=== PATIENT | female | born 1980 | race Two or more races ===

== ENCOUNTER 2018-06-21 16:39 | Emergency (ER) | payer OTHER ==
--- NOTE | 2018-06-21 17:15 | PDOC ---
History of Present Illness - General Chief Complaint: Seizure Stated Complaint: SEIZURE Time Seen by Provider: 06/21/18 17:01 - History of Present Illness Initial Comments: The patient is a 38F w/ a history of seizures who presents for evaluation s/p second seizure and fall today. She reports that she had a seizure and fall this morning, was evaluated at [facility], including CT scan, was not given any medication, and was discharged home. 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 She was found by roommates who called EMS. Upon presentation she states she feels oriented, has a global GONZALES since he first fall, and is feeling generalized muscle tightness which is normal for her s/p seizure. She endorses taking her medications as prescribed. She does not recall the name of her neurologist at this time. Denies recent illness, fevers/chills, chest pain, SOB, abdominal pain, N/V/C/D, dysuria, hematuria, or changes in sensation Divalproex 500mg Phenobarbital 97.2mg Keppra 750mg Fycompa 12mg 06/21/18 17:09 Past History - Past Medical History Allergies/Adverse Reactions: Allergies Allergy/AdvReac Type Severity Reaction Status Date / Time lamotrigine Allergy Verified 06/21/18 16:59 meloxicam Allergy Verified 06/21/18 16:59 Home Medications: Ambulatory Orders Diazepam [Valium] 5 mg PO DAILY 06/21/18 Divalproex [Depakote -] 500 mg PO DAILY 06/21/18 Folic Acid 1 mg PO DAILY 06/21/18 Levothyroxine [Synthroid -] 150 mcg PO DAILY 06/21/18 Perampanel [Fycompa] 12 mg PO DAILY 06/21/18 Phenobarbital 97.2 mg PO DAILY 06/21/18 levETIRAcetam [Keppra -] 750 mg PO DAILY 06/21/18 COPD: No CHF: No Seizures: Yes - Suicide/Smoking/Psychosocial Hx Smoking History: Never smoked Have you smoked in the past 12 months: No Information on smoking cessation initiated: No Hx Alcohol Use: No Drug/Substance Use Hx: No Substance Use Type: None Review of Systems - Review of Systems Able to Perform ROS?: Yes Comments:: GENERAL/CONSTITUTIONAL: No fever or chills. No weakness HEAD, EYES, EARS, NOSE AND THROAT: No change in vision. No ear pain or discharge. No sore throat CARDIOVASCULAR: No chest pain or shortness of breath RESPIRATORY: Denies cough, hemoptysis GASTROINTESTINAL: No nausea, vomiting, diarrhea or constipation GENITOURINARY: No dysuria, frequency, or change in urination MUSCULOSKELETAL: No joint or muscle swelling or pain. No neck or back pain SKIN: No rash NEUROLOGIC: + headache, LOC; Denies vertigo or change in strength/sensation ENDOCRINE: No increased thirst. No abnormal weight change HEMATOLOGIC/LYMPHATIC: No anemia, easy bleeding, or history of blood clots ALLERGIC/IMMUNOLOGIC: No hives or skin allergy 06/21/18 17:13 Is the patient limited Citizen Of [place] proficient: No *Physical Exam - Vital Signs Last Vital Signs Temp Pulse Resp BP Pulse Ox 99.5 F 102 H 18 127/95 100 06/21/18 16:43 06/21/18 16:43 06/21/18 16:43 06/21/18 16:43 06/21/18 16:43 - Physical Exam Comments: GENERAL: Awake, alert, and fully oriented, in no acute distress HEAD: Hematoma supeior to L eye with overlying ecchymosis EYES: PERRLA, EOMI, sclera anicteric, conjunctiva clear ENT: Hearing grossly normal, nares patent, oropharynx clear without exudates. Moist mucosa LUNGS: No distress, speaks full sentences, clear to auscultation bilaterally HEART: Tachycardic rate with regular rhythm, normal S1 and S2, no murmurs appreciated, peripheral pulses normal and equal bilaterally ABDOMEN: Soft, nontender, normoactive bowel sounds. No guarding, no rebound EXTREMITIES : Normal inspection, Normal range of motion, no edema. No clubbing or cyanosis NEUROLOGICAL: Cranial nerves II through XII grossly intact. Normal speech, no focal sensorimotor deficits SKIN: L supraorbital ecchymosis 06/21/18 17:14 Moderate Sedation - Procedure Monitoring Vital Signs: Procedure Monitoring Vital Signs Temperature 99.5 F 06/21/18 16:43 Pulse Rate 102 H 06/21/18 16:43 Respiratory Rate 18 06/21/18 16:43 Blood Pressure 127/95 06/21/18 16:43 O2 Sat by Pulse Oximetry (%) 100 06/21/18 16:43 ED Treatment Course - LABORATORY CBC & Chemistry Diagram: 06/21/18 17:00 06/21/18 17:00 - RADIOLOGY Radiology Studies Ordered: Category Date Time Status HEAD CT WITHOUT CONTRAST [CT] Stat CT Scan 06/21/18 16:56 Ordered Medical Decision Making - Medical Decision Making The patient is a 38F w/ a history of hypothyroidism and seizures that presents or evaluation s/p second seizure and fall today ED Course CMP, CBC, cardiac enzymes, TSH, serum preg ECG Head CT w/o 06/21/18 17:15 No ARLYN Lytes wnl Trop I neg LFTs wnl No leukocytosis No anemia TSH wnl serum preg neg Pt at CT 06/21/18 18:22 CT head neg for acute pathology Discussed patient w/ Dr. Whelan. Will increase pt's Keppra to 1000mg BID and have her f/u with Epilepsy. Patient also has f/u w/ her PCP tomorrow. Will patient her home meds that are due (Phenobarb, valproate, diazepam, and keppra) Plan for D/C w/ PCP f/u Discharge instructions and return precautions given Patient is in agreement and verbalized understanding Dispo: Home 06/21/18 20:23 *DC/Admit/Observation/Transfer Diagnosis at time of Disposition: Seizure Fall from standing Qualifiers: Encounter type: initial encounter Qualified Code(s): W19.XXXA - Unspecified fall, initial encounter - Discharge Dispostion Disposition: HOME Condition at time of disposition: Stable Decision to Admit order: No - Referrals Referrals: Fernando Welch MD [Primary Care Provider] - Jeff Blas MD [Staff Physician] - - Patient Instructions Printed Discharge Instructions: DI for Seizure Disorder -- Adult Additional Instructions: You were seen in the Emergency Department today for evaluation of seizure and fall. Review the handout provided at discharge. After talking with our Neurologist, he recommends INCREASE YOUR KEPPRA DOSE TO 1000mg TWICE A DAY. Follow up with your neurologist and the referral provided to evaluate if you need to modify your regimen further. Return to the Emergency Department if you develop fevers Print Language: HEBREW - Post Discharge Activity
[2018-06-21 17:17] LABS: HEMATOCRIT 38.9 % (32.4-45.2); HEMOGLOBIN 13.7 GM/dL (10.7-15.3); MCH 33.1 pg (25.7-33.7); MCHC 35.2 g/dl (32.0-36.0); MEAN CELL VOLUME 94.1 fl (80-96); PLATELET COUNT 183 K/MM3 (134-434); RBC 4.13 M/mm3 (3.60-5.2); RDW 13.5 % (11.6-15.6)
--- NOTE | 2018-06-21 17:21 | PDOC ---
Attending Attestation - HPI HPI: This patient is a 38 year old female with PMHx of seizures who was BIBA and presents s/p seizures earlier today. Patient states that she had a seizure and fell earlier this morning and was evaluated at [facility]. She had a CT scan and was d/c home. She states that she had a second seizure while at home and fell once again. She was found by roommates who called EMS. Patient endorses diffuse headache, as well as a bitten upper lip. She states that she has been taking her medications as prescribed. Denies recent illness, fevers/chills, chest pain, SOB, abdominal pain, N/V/C/D, dysuria, hematuria, or changes in sensation 06/21/18 18:48 - Physicial Exam PE: GENERAL: Febrile to 103F. Well developed, well nourished. Awake and alert. In no acute distress. HEENT: Normocephalic, hematoma over left eyebrow. PERRLA, EOMI. No conjunctival pallor. Sclerae are non-icteric. Moist mucous membranes. NECK: Supple. Full ROM. No JVD. Carotid pulses 2+ and symmetric, without bruits. CARDIOVASCULAR: Regular rate and rhythm. No murmurs, rubs, or gallops. PULMONARY: No evidence of respiratory distress. Lungs clear to auscultation bilaterally. No wheezing, rales or rhonchi. ABDOMINAL: Soft. Non-tender. Non-distended. No rebound or guarding. No organomegaly. Normoactive bowel sounds. MUSCULOSKELETAL Normal range of motion at all joints. No bony deformities or tenderness. No CVA tenderness. EXTREMITIES: No cyanosis. No clubbing. No edema. No calf tenderness. SKIN: Warm and dry. Normal capillary refill. No rashes. No jaundice. NEUROLOGICAL: Alert, awake, appropriate. No deficits to light touch and temperature in face, upper extremities and lower extremities. No motor deficits in the in face, upper extremities and lower extremities. Normoreflexic in the upper and lower extremities. Normal speech. Toes are downgoing bilaterally. PSYCHIATRIC: Cooperative. Good eye contact. Appropriate mood and affect. 06/21/18 18:48 - Medical Decision Making Placed phonecall to Neuro garment alteration examiner (Dr. Whelan) 06/21/18 19:28 <María Jerome - Last Filed: 06/21/18 19:28> - Resident Resident Name: Kelechi Thompson - Medical Decision Making 06/21/18 20:26 this 38 yo female has a h/o epilepsy and takes multiple medications for epilepsy -she states she had a previous szs today and was seen at [facility] ED. -she sustained a forehead hematoma over left eyebrow and and trauma to her buccal mucosa of her L maxillary lip -she is axox3 ,moving all his extremities ct scan head no acute intracranial pathology,no skull fracture -lab reviewed -case discussed with Dr Whelan, plan will increase keppra to 1000mg BID quevedo she has an appt with her neurologist TOMORROW <Mary Jo Sandhu - Last Filed: 06/21/18 20:36>
[2018-06-21 17:54] LABS: ALBUMIN 3.8 g/dl (3.4-5.0); ALK PHOS 68 U/L (45-117); ANION GAP 11 MMOL/L (8-16); BILIRUBIN,TOTAL 0.3 mg/dL (0.2-1); BLOOD UREA NITROGEN 6 mg/dL (7-18); CALCIUM 8.6 mg/dL (8.5-10.1); CHLORIDE 103 mmol/L (98-107); CO2 26 mmol/L (21-32); CREATININE 0.6 mg/dL (0.55-1.3); GLUCOSE,RANDOM 100 mg/dL (74-106); POTASSIUM 3.7 mmol/L (3.5-5.1); SGOT/AST 20 U/L (15-37); SGPT/ALT 33 U/L (13-61); SODIUM 140 mmol/L (136-145); TOT PROT 8.2 g/dl (6.4-8.2)
[2018-06-21 17:57] VITALS: BP 127/95; PULSE 102; TEMP 99.5; BMI 34.2
[2018-06-21] MEDS ORDERED: PHENobarbital 20 MG/5 ML UNIT-DOSE CUP PO ONE ×2 (18:47→19:15)
[2018-06-21] MEDS ORDERED: levETIRAcetam 500 MG TABLET (FP) PO ONE ×2 (19:52→20:09)
[2018-06-21] MEDS ORDERED: DIVALPROEX SODIUM 500 MG TABLET E.C. PO ONE (19:52)
[2018-06-21] MEDS ORDERED: diazePAM 5 MG TABLET PO ONE (19:54)
[2018-06-21] MEDS ORDERED: diazePAM 5 MG TABLET ONE (20:09)
[2018-06-21] MEDS ORDERED: DIVALPROEX SODIUM 500 MG TABLET E.C. ONE (20:09)
--- NOTE | 2018-06-22 11:15 | EKG ---
Test Reason : Blood Pressure : / mmHG Vent. Rate : 096 BPM Atrial Rate : 096 BPM P-R Int : 152 ms QRS Dur : 094 ms QT Int : 358 ms P-R-T Axes : 011 074 012 degrees QTc Int : 452 ms NORMAL SINUS RHYTHM PROBABLE INCOMPLETE RBBB ABNORMAL ECG NO PREVIOUS ECGS AVAILABLE Confirmed by ALEX GAUTAM MD ([id number]) on 06/22/2018 11:15:45 AM Referred By: Confirmed By:ALEX GAUTAM MD
== END 2018-06-21 20:51 | disposition home or self-care (01) ==
LOC: JER 16:39
DX: R56.9 Unspecified convulsions (principal); W18.39XA Other fall on same level, initial encounter; Y93.89 Activity, other specified; Y92.89 Other specified places as the place of occurrence of the external cause
CPT/HCPCS: 36415; 70450-TC; 80053; 82550; 82553; 84484; 84703; 85027; 93005; 93010; 99284-25

== ENCOUNTER 2018-11-09 13:04 | Emergency (ER) | payer OTHER ==
[2018-11-09 13:17] VITALS: BMI 29.5
[2018-11-09] MEDS ORDERED: SODIUM CHLORIDE 1,000 ML IV STA (14:28)
[2018-11-09 14:37] LABS: BASO % 0.5 % (0-2.0); EOS % 0.7 % (0-4.5); HEMATOCRIT 36.6 % (32.4-45.2); HEMOGLOBIN 12.4 GM/dL (10.7-15.3); LYMPH % 40.8 % (8-40); MEAN CELL VOLUME 94.3 fl (80-96); MEAN PLT VOLUME 8.3 fl (7.5-11.1); MONO % 10.3 % (3.8-10.2); NEUT % 47.7 % (42.8-82.8); PLATELET COUNT 171 K/MM3 (134-434); RBC 3.88 M/mm3 (3.60-5.2); RDW 14.2 % (11.6-15.6); WHITE BLOOD COUNT 4.8 K/mm3 (4.0-10.0)
--- NOTE | 2018-11-09 15:10 | PDOC ---
History of Present Illness - General Chief Complaint: Seizure Stated Complaint: SEIZURES Time Seen by Provider: 11/09/18 13:53 History Source: Patient, Director Of Laboratory Operations Used Exam Limitations: Language Barrier - History of Present Illness Initial Comments: 11/09/18 15:05 Pt is a 38yo F with PMH of Epilepsy, Hypothyroidism, L eye ptosis BIBA for witnessed seizure at around noon today. Pt states that she was sitting in a chair and the next thing she knew was that EMS was taking her to the hospital. Pt states that she seized for around 2 minutes. Previous seizure was October 27, 2018. She takes Keppra, phenobarbital, depakote and diazepam. She has been taking her medications daily. She saw her neurologist 20 days ago and there have been no changes in her medications. She denies headache, changes in vision , chest pain, sob, fevers, chills, numbness/tingling, abdominal pain, n/v/d. Denies illicit drug use. PMD: Stepan Neuro: Ivy PMH: see hpi PSH: none Allergies: lamictal, meloxicam Past History - Past Medical History Allergies/Adverse Reactions: Allergies Allergy/AdvReac Type Severity Reaction Status Date / Time lamotrigine Allergy Verified 06/21/18 16:59 meloxicam Allergy Verified 06/21/18 16:59 Home Medications: Ambulatory Orders Diazepam [Valium] 5 mg PO DAILY 06/21/18 Divalproex [Depakote -] 500 mg PO DAILY 06/21/18 Folic Acid 1 mg PO DAILY 06/21/18 Levothyroxine [Synthroid -] 150 mcg PO DAILY 06/21/18 Perampanel [Fycompa] 12 mg PO DAILY 06/21/18 Phenobarbital 97.2 mg PO DAILY 06/21/18 levETIRAcetam [Keppra -] 750 mg PO DAILY 06/21/18 COPD: No CHF: No Seizures: Yes Thyroid Disease: Yes - Suicide/Smoking/Psychosocial Hx Smoking History: Never smoked Have you smoked in the past 12 months: No Hx Alcohol Use: No Drug/Substance Use Hx: No Substance Use Type: None Review of Systems - Review of Systems Constitutional: No: Chills, Fever, Weakness HEENTM: No: Eye Pain, Blurred Vision, Double Vision, Throat Swelling, Mouth Pain Respiratory: No: Cough, Shortness of Breath Cardiac (ROS): No: Chest Pain, Lightheadedness, Palpitations ABD/GI: No: Symptoms Reported : No: Symptoms Reported Musculoskeletal: No: Symptoms Reported Integumentary: No: Symptoms Reported Neurological: Yes: Seizure. No: Headache, Numbness, Paresthesia, Tingling, Tremors, Weakness, Dizziness *Physical Exam - Vital Signs Last Vital Signs Temp Pulse Resp BP Pulse Ox 98.4 F 75 18 124/95 99 11/09/18 13:10 11/09/18 13:10 11/09/18 13:10 11/09/18 13:10 11/09/18 13:10 - Physical Exam General Appearance: Yes: Nourished, Appropriately Dressed. No: Apparent Distress HEENT: positive: EOMI, YOANA, Normal ENT Inspection, Other (no tongue lacerations ) Neck: positive: Trachea midline, Supple. negative: Lymphadenopathy (R), Lymphadenopathy (L) Respiratory/Chest: positive: Lungs Clear, Normal Breath Sounds. negative: Crackles, Wheezing Cardiovascular: positive: Regular Rhythm, Regular Rate, S1, S2. negative: Edema , JVD, Murmur Vascular Pulses: Carotid (R): 2+, Carotid (L): 2+, Dorsalis-Pedis (R): 2+, Doralis-Pedis (L): 2+ Gastrointestinal/Abdominal: positive: Normal Bowel Sounds, Soft Musculoskeletal: negative: CVA Tenderness Integumentary: positive: Normal Color, Dry, Warm Neurologic: positive: stone driller helper II-XII NML intact, Fully Oriented, Alert, Normal Mood/ Affect, Normal Response, Motor Strength / ED Treatment Course - LABORATORY CBC & Chemistry Diagram: 11/09/18 14:30 11/09/18 14:30 - ADDITIONAL ORDERS Additional order review: 11/09/18 14:30 RBC 3.88 MCV 94.3 MCHC 34.0 RDW 14.2 MPV 8.3 Neutrophils % 47.7 Lymphocytes % 40.8 H Monocytes % 10.3 H Eosinophils % 0.7 Basophils % 0.5 Medical Decision Making - Medical Decision Making 11/09/18 19:38 Pt is a 38yo F with PMH of Epilepsy, Hypothyroidism, L eye ptosis BIBA for witnessed seizure at around noon today. Pt states that she was sitting in a chair and the next thing she knew was that EMS was taking her to the hospital. Pt states that she seized for around 2 minutes. Previous seizure was October 27, 2018. She takes Keppra, phenobarbital, depakote and diazepam. She has been taking her medications daily. She saw her neurologist 20 days ago and there have been no changes in her medications. She denies headache, changes in vision , chest pain, sob, fevers, chills, numbness/tingling, abdominal pain, n/v/d. Denies illicit drug use. Vitals: wnl PE: normal. no lacerations, normal neurological exam ddx includes but not limited to seizure, syncope, cva/tia, metabolic/ electrolyte abnormality, medication non complilance most likely breakthrough seizure. Pt keeps log of every seizure she experiences and has a few every month. No new medication changes. -labs, tsh, serum -ekg -fluids Pt has not had seizure while in ed. labs wnl. Pt eating. Dr. Haynes recommended 500mg Keppra load prior to DC. Pt has not had seizure in ED, did not fall or hit head, no injuries, hemodynamically stable, normal labs. safe for dc home. Pt has neuro f/u. Pt given discharge instructions and return precautions. pt agrees to plan and verbalizes understanding. *DC/Admit/Observation/Transfer Diagnosis at time of Disposition: Seizure - Discharge Dispostion Disposition: HOME Condition at time of disposition: Good Decision to Admit order: No - Referrals Referrals: Mildred Haynes MD [Staff Physician] - - Patient Instructions Printed Discharge Instructions: DI for Seizure Disorder -- Adult Additional Instructions: You were seen in the emergency room today for having a seizure. Your blood tests are all normal. We gave you a dose of Keppra here in the emergency room. Please take your medications as directed. I recommend that you make an appointment with your neurologist, Dr. Haynes this week. Do not drive or operate machinery. If you feel your seizure coming on, lay down. Come back to the emergency room if you have another seizure, fall down, lose consciousness, or if any new concerning symptom develops. Thank you - Post Discharge Activity
[2018-11-09 15:14] LABS: ALBUMIN 3.5 g/dl (3.4-5.0); ALK PHOS 56 U/L (45-117); ANION GAP 9 MMOL/L (8-16); BILIRUBIN,TOTAL 0.2 mg/dL (0.2-1); BLOOD UREA NITROGEN 7 mg/dL (7-18); CALCIUM 8.4 mg/dL (8.5-10.1); CHLORIDE 102 mmol/L (98-107); CO2 27 mmol/L (21-32); CREATININE 0.6 mg/dL (0.55-1.3); GLUCOSE,RANDOM 75 mg/dL (74-106); MAGNESIUM 2.4 mg/dL (1.8-2.4); POTASSIUM 3.7 mmol/L (3.5-5.1); SGOT/AST 20 U/L (15-37); SGPT/ALT 19 U/L (13-61); SODIUM 138 mmol/L (136-145); TOT PROT 7.8 g/dl (6.4-8.2)
--- NOTE | 2018-11-09 15:32 | PDOC ---
Attending Attestation - Resident Resident Name: Sa Neetaira - ED Attending Attestation I have performed the following: I have examined & evaluated the patient, The case was reviewed & discussed with the resident, I agree w/resident's findings & plan - HPI HPI: 11/10/18 11:29 Pt is a 38yo F with PMH of Epilepsy, Hypothyroidism, L eye ptosis BIBA for witnessed seizure at around noon today. Pt states that she was sitting in a chair and the next thing she knew was that EMS was taking her to the hospital. Pt states that she seized for around 2 minutes. Previous seizure was October 27, 2018. She takes Keppra, phenobarbital, depakote and diazepam. She has been taking her medications daily. She saw her neurologist 20 days ago and there have been no changes in her medications. She denies headache, changes in vision , chest pain, sob, fevers, chills, numbness/tingling, abdominal pain, n/v/d. Denies illicit drug use. - Physicial Exam PE: 11/10/18 11:30 NAD, well appearing, alert, oriented appropriately. EOMI, PERRL. left eye ptosis. CN II-XII grossly intact, speech clear. RRR, CTAB, abdomen soft NTND, WWP, no edema. gait stable. - Medical Decision Making 11/09/18 15:33 See HPI for details Vital signs reviewed, wnl. Prior notes reviewed, including admissions, discharges and consultations. laboratory results and imaging reviewed, basic labs and lytes wnl, neg preg test. EKG normal sinus rhythm at 68 bpm, no interval abnormalities, narrow QRS, ST and T wave segments and morphology normal. Nonspecific T wave abnormalities with TWI in III. similar to prior ED course - no events, compliant with meds called to Dr Haynes, extra dose of keppra. reduce stressors, sleep and diet. f/u neuro as outpatient. no indication for further workup with established sz and back to baseline with close f/u Discharge: Pt to be discharged in stable condition. Patient and family made aware of impression and plan, return precautions discussed (including but not limited to worsening pain or symptoms), fevers, or signs of infection, chest pain, respiratory distress, inability to tolerate oral intake, dehydration, syncope, or neurologic changes). Follow up with PMD and/or specialist as recommended, follow up information provided, take medications as instructed for duration of time. continue with supportive care, avoid triggers and precipitants. All questions answered to patient's satisfaction and expressed understanding and comfort with this. Patient does not suffer from an acute life- threatening medical condition at this time she is safe for outpatient follow- up. 11/09/18 15:35 11/10/18 11:30 11/10/18 11:30 Heart Score/ECG Review #1 ECG reviewed & interpreted by me at: 15:05 General ECG Interpretation: Sinus Rhythm, Normal Rate, Normal Intervals, No acute ischemic changes Compared to previous ECG there are: No significant change 11/09/18 15:35 EKG normal sinus rhythm at 68 bpm, no interval abnormalities, narrow QRS, ST and T wave segments and morphology normal. Nonspecific T wave abnormalities with TWI in III. similar to prior EKGs
[2018-11-09 15:53] VITALS: TEMP 97.9
[2018-11-09] MEDS ORDERED: DIVALPROEX SODIUM 500 MG TABLET E.C. PO ONE (15:59)
[2018-11-09] MEDS ORDERED: DIVALPROEX SODIUM 500 MG TABLET E.C. ONE (16:07)
[2018-11-09 17:13] VITALS: BP 118/89; PULSE 72
--- NOTE | 2018-11-09 17:50 | EKG ---
Test Reason : Blood Pressure : / mmHG Vent. Rate : 068 BPM Atrial Rate : 068 BPM P-R Int : 166 ms QRS Dur : 100 ms QT Int : 420 ms P-R-T Axes : 026 064 022 degrees QTc Int : 446 ms NORMAL SINUS RHYTHM CANNOT RULE OUT INFERIOR INFARCT (CITED ON OR BEFORE 09-NOV-2018) ABNORMAL ECG WHEN COMPARED WITH ECG OF 21-JUN-2018 17:24, NO SIGNIFICANT CHANGE WAS FOUND Confirmed by YISSEL FRANCO MD ([id number]) on 11/09/2018 5:50:12 PM Referred By: Confirmed By:YISSEL FRANCO MD
== END 2018-11-09 17:16 | disposition home or self-care (01) ==
LOC: JER 13:04
PROC: 3E0337Z Introduction of Electrolytic and Water Balance Substance into Peripheral Vein, Percutaneous Approach (ICD-10-PCS; principal; 2018-11-09)
DX: G40.909 Epilepsy, unspecified, not intractable, without status epilepticus (principal); E03.9 Hypothyroidism, unspecified; H02.402 Unspecified ptosis of left eyelid
CPT/HCPCS: 36415; 80053; 83735; 84443; 84703; 85025; 93005; 93010; 96360; 99283-25; J7030

== ENCOUNTER 2019-03-05 19:47 | Emergency (ER) | payer OTHER ==
[2019-03-05 20:04] VITALS: TEMP 98.1; BMI 64.5
--- NOTE | 2019-03-05 21:19 | PDOC ---
History of Present Illness - General Chief Complaint: Psychiatric Stated Complaint: PRESCRIPTION REFILL History Source: Patient Exam Limitations: No Limitations - History of Present Illness Initial Comments: 03/05/19 20:36 38 yo female PMH of Epilepsy, Hypothyroidism, L eye ptosis presents to the ED from [facility] for medication refill. Pt states she called her Neurologist this am, told them that she ran out of Diazapam and was told that the medication was sent to her pharmacy however when she arrived, it was not there. Pt then went [facility] for medication refill today after running out of Diazapam for epilepsy but was denied the medication since it says she has 4 refills on the bottle. Pt states she goes to a new pharmacy now and they are not accepting the refill allotment. Last seizure was Friday. Pt has f/u appointment with Primary this Friday (3 days ) Of note, EMS state pt said she will kill herself if no one helps. Pt admits to saying that to the EMS out of frustration, denies SI/HI and has never attempted suicide before. Pt has had thoughts of SI but never had a plan. Pt states she no longer feels SI. denies Schizophrenia pt under excessive stress Called Dr. Joiner, pts neurologist states pt has severe seizure history and is scheduled for vagal nerve stim surgery for seizures. States 5 day supply of Diazapam is indicated at this time and would like it to be dispenced ISTOP reference [id number] Pt does not appear to be abusing controlled prescription medication and will send 5 days to [facility] as per Primary Neuro Past History - Past Medical History Allergies/Adverse Reactions: Allergies Allergy/AdvReac Type Severity Reaction Status Date / Time lamotrigine Allergy Severe Verified 03/05/19 20:12 meloxicam Allergy Severe Verified 03/05/19 20:12 Home Medications: Ambulatory Orders Diazepam [Valium] 5 mg PO DAILY 06/21/18 Divalproex [Depakote -] 750 mg PO DAILY 06/21/18 Folic Acid 1 mg PO DAILY 06/21/18 Levothyroxine [Synthroid -] 150 mcg PO DAILY 06/21/18 Phenobarbital 97.2 mg PO DAILY 06/21/18 levETIRAcetam [Keppra -] 1,500 mg PO DAILY 06/21/18 Diazepam [Valium] 5 mg PO Q8H PRN #15 tablet MDD 3 03/05/19 Perampanel [Fycompa] 10 mg PO DAILY 03/05/19 COPD: No CHF: No Seizures: Yes Thyroid Disease: Yes Other medical history: Anxiety, - Immunization History Immunization Up to Date: No - Suicide/Smoking/Psychosocial Hx Smoking History: Never smoked Have you smoked in the past 12 months: No Hx Alcohol Use: No Drug/Substance Use Hx: No Substance Use Type: None *Physical Exam - Vital Signs Last Vital Signs Temp Pulse Resp BP Pulse Ox 98.1 F 86 16 127/97 99 03/05/19 19:55 03/05/19 19:55 03/05/19 19:55 03/05/19 19:55 03/05/19 19:55 ED Treatment Course - LABORATORY CBC & Chemistry Diagram: 03/05/19 21:30 03/05/19 21:30 Medical Decision Making - Medical Decision Making 38 yo female PMH of Epilepsy, Hypothyroidism, L eye ptosis presents to the ED from [facility] for medication refill. Pt states she called her Neurologist this am, told them that she ran out of Diazapam and was told that the medication was sent to her pharmacy however when she arrived, it was not there. Pt then went [facility] for medication refill today after running out of Diazapam for epilepsy but was denied the medication since it says she has 4 refills on the bottle. Pt states she goes to a new pharmacy now and they are not accepting the refill allotment. Last seizure was Friday. Pt has f/u appointment with Primary this Friday (3 days ) Of note, EMS state pt said she will kill herself if no one helps. Pt admits to saying that to the EMS out of frustration, denies SI/HI and has never attempted suicide before. Pt has had thoughts of SI but never had a plan. Pt states she no longer feels SI. denies Schizophrenia pt under excessive stress Called Dr. Joiner, pts neurologist states pt has severe seizure history and is scheduled for vagal nerve stim surgery for seizures. States 5 day supply of Diazapam is indicated at this time and would like it to be dispensed ISTOP reference [id number] Pt does not appear to be abusing controlled prescription medication and will send 5 days to [facility] as per Primary Neuro Call placed to PCP Dr. Hatfield, no return call Pt *DC/Admit/Observation/Transfer Diagnosis at time of Disposition: Medication refill - Discharge Dispostion Disposition: HOME - Prescriptions Prescriptions: Diazepam [Valium] 5 mg PO Q8H PRN #15 tablet MDD 3 PRN Reason: Back Pain - Referrals Referrals: Arias Jovel [Primary Care Provider] - - Patient Instructions Printed Discharge Instructions: Epilepsy (Alternative Therapy) Additional Instructions: you should follow up with DR Jovel on friday as scheduled. 03/07. you were given a prescription of valium 5 mg sent to your pharmacy. return for any problems or concerns. follow up with your nuerologist dr Joiner. - Post Discharge Activity
[2019-03-05] MEDS ORDERED: diazePAM 5 MG TABLET PO ONE (21:23)
[2019-03-05] MEDS ORDERED: diazePAM 5 MG TABLET ONE (21:27)
[2019-03-05 21:54] LABS: BASO % 0.9 % (0-2.0); EOS % 1.1 % (0-4.5); HEMOGLOBIN 12.6 GM/dL (10.7-15.3); LYMPH % 48.9 % (8-40); MCH 32.4 pg (25.7-33.7); MCHC 34.2 g/dl (32.0-36.0); MEAN CELL VOLUME 94.8 fl (80-96); MEAN PLT VOLUME 7.5 fl (7.5-11.1); MONO % 11.5 % (3.8-10.2); NEUT % 37.6 % (42.8-82.8); PLATELET COUNT 156 K/MM3 (134-434); RDW 14.4 % (11.6-15.6); WHITE BLOOD COUNT 5.4 K/mm3 (4.0-10.0)
[2019-03-05 22:25] LABS: ALBUMIN 3.5 g/dl (3.4-5.0); ALK PHOS 47 U/L (45-117); ANION GAP 8 MMOL/L (8-16); BILIRUBIN,TOTAL 0.2 mg/dL (0.2-1); BLOOD UREA NITROGEN 6.9 mg/dL (7-18); CALCIUM 8.3 mg/dL (8.5-10.1); CHLORIDE 102 mmol/L (98-107); CO2 27 mmol/L (21-32); CREATININE 0.7 mg/dL (0.55-1.3); GLUCOSE,RANDOM 84 mg/dL (74-106); POTASSIUM 3.6 mmol/L (3.5-5.1); SGOT/AST 12 U/L (15-37); SGPT/ALT 17 U/L (13-61); SODIUM 136 mmol/L (136-145); TOT PROT 7.7 g/dl (6.4-8.2)
--- NOTE | 2019-03-05 23:05 | PDOC ---
Documentation entered by Freda Cordon SCRIBE, acting as scribe for Dulce Prasad MD. Dulce Prasad MD: This documentation has been prepared by the Neris aguilar Xhesika, SCRIBE, under my direction and personally reviewed by me in its entirety. I confirm that the documentation accurately reflects all work, treatment, procedures, and medical decision making performed by me. Attending Attestation - Resident Resident Name: Homero Islas - ED Attending Attestation I have performed the following: I have examined & evaluated the patient, The case was reviewed & discussed with the resident, I agree w/resident's findings & plan, Exceptions are as noted - HPI HPI: 03/05/19 21:36 The patient is a 38 year old female with a significant PMH of Epilepsy, Hypothyroidism, L eye ptosis who presents to the emergency department for her Epilepsy prescription refill. Patient notes she ran out of her valium medication, called Dr. Haynes for her Diazepam which was then sent to her local pharmacy, however, when she arrived at the pharmacy her medication was not there. Patient notes she then went to [facility] and they denied giving her medication refill which prompted her arrival to the ED today. Patient notes her last seizure was on Friday and she has a follow up appointment with her PCP this Friday. EMS notes the patient was noting that she was going to hurt herself if she does not receive her medication, however, Patient denies any active suicidal ideation or homicide. The patient denies chest pain, shortness of breath, headache and dizziness. Denies fever, chills, cough, nausea, vomiting, diarrhea and constipation. Denies dysuria, frequency, urgency and hematuria. Allergies: lamotrigine, meloxicam PCP: Dr. Ying Neurologist: Dr Rhys Roberto pcp dr Jovel 03/05/19 23:00 - Physicial Exam PE: 03/05/19 23:00 awake alert lungs clear bilat heart rrr no mrg abd soft nt nd ext wwp no edema. no calf tenderness. nuero alert oriented x 3. pt calm cooperative. denies SI or HI currently. - Medical Decision Making 03/05/19 23:01 38 yo h/o severe epilepsy followed by nuerologist dr Joiner currently on depakote , phenobarb and leviteractam also take valium 5 mg tid. was given 3 refills for 3 month supply which ran out on 03/04. no more refills. confirmed on [facility] report number [id number]. d/w dr joiner her nuerologist confirms she has difficult severe epilepsy and she is being referred for vagal nerve stimulator. ask us to give her a valium 5 mg 5 day suppply. will give pt one in ed. given rx for 5 day supply. pt has appt with dr Jovel for friday. asked regarding her priorstatesments about self harm pt states she is frustrated and thats why she said that. no h/o prior suicide attempts. denies h/ o depression shizophrenia or bipolar.
[2019-03-05 23:10] VITALS: BP 103/79; PULSE 56
== END 2019-03-05 23:33 | disposition home or self-care (01) ==
LOC: JER 19:47
DX: Z76.0 Encounter for issue of repeat prescription (principal)
CPT/HCPCS: 36415; 80053; 80307; 85025; 99283-25

== ENCOUNTER 2019-03-06 00:40 | Emergency (ER) | payer OTHER | END 2019-03-06 14:15 | disposition home or self-care (01) | LOC: JER 00:40 ==

== ENCOUNTER 2019-03-25 12:55 | Emergency (ER) | payer OTHER ==
[2019-03-25 13:08] VITALS: BP 128/89; PULSE 70; TEMP 98.1; BMI 30.9
--- NOTE | 2019-03-25 13:51 | PDOC ---
History of Present Illness - General Chief Complaint: Pain Stated Complaint: LEG PAIN Time Seen by Provider: 03/25/19 12:59 - History of Present Illness Initial Comments: 03/25/19 13:49 CHIEF COMPLAINT: back and leg pain HISTORY OF PRESENT ILLNESS: 38 yo F with hx of epilepsy, hypothyroidism, left eye ptosis, low back pain presents to fast track with bilateral leg pain. Patient reports she has had a history of back pain but today she was walking out of school and suddenly she felt both her legs feel numb. She denies any loss of bladder or bowel function but does report that she has decreased sensation in her legs. No recent travel or sick contacts. PAST MEDICAL HISTORY: Denies past medical history FAMILY HISTORY: Denies SOCIAL HISTORY: Denies tobacco, alcohol, illicit drug use. SURGICAL HISTORY: Denies ALLERGIES: lamotrigine, meloxicam REVIEW OF SYSTEMS General/Constitutional: Denies fever or chills. Denies weakness, weight change. HEENT: Denies change in vision. Denies ear pain or discharge. Denies sore throat. Cardiovascular: Denies chest pain or shortness of breath. Respiratory: Denies cough, wheezing, or hemoptysis. Gastrointestinal: Denies nausea, vomiting, diarrhea or constipation. Denies rectal bleeding. Genitourinary: Denies dysuria, frequency, or change in urination. Musculoskeletal: Bilateral leg pain and numbness with back pain. Skin and breasts: Denies rash or easy bruising. Neurologic: Denies headache, vertigo, loss of consciousness, or loss of sensation. Psychiatric: Pt has history of depression. PHYSICAL EXAM General Appearance: Well-appearing, appropriately dressed. No apparent distress , no intoxication. HEENT: EOMI, PERRLA, normal ENT inspection, normal voice, TMs normal, pharynx normal. No conjunctival pallor. No photophobia, scleral icterus. Neck: Supple. Trachea midline. No tenderness, rigidity, carotid bruit, stridor , lymphadenopathy, or thyromegaly. Respiratory/Chest: Lungs CTAB. No shortness of breath, chest tenderness, respiratory distress, accessory muscle use. No crackles, rales, rhonchi, stridor , wheezing, dullness Cardiovascular: RRR. S1, S2. No JVD, murmur, bradycardia, tachycardia. Vascular Pulses: Dorsalis-Pedis (R): 2+, Dorsalis-Pedis (L): 2+ Gastrointestinal/Abdominal: Normal bowel sounds. Abdomen soft, non-distended. No tenderness or rebound tenderness. No organomegaly, pulsatile mass, guarding , hernia, hepatomegaly, splenomegaly. Lymphatic: No adenopathy, tenderness. Musculoskeletal/Extremities: Decreased sensation to b/l legs. Pelvis Stable. No CVA tenderness. No tenderness to extremities, pedal edema, swelling, erythema or deformity. Integumentary: Appropriate color, dry, warm. 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 Fully oriented, alert. Appropriate mood/affect. Motor strength 5/5. No appreciable EOM palsy, facial droop or sensory deficit. 03/25/19 13:57 Past History - Past Medical History Allergies/Adverse Reactions: Allergies Allergy/AdvReac Type Severity Reaction Status Date / Time lamotrigine Allergy Severe Verified 03/25/19 13:02 meloxicam Allergy Severe Verified 03/25/19 13:02 Home Medications: Ambulatory Orders Divalproex [Depakote -] 750 mg PO BID 06/21/18 Folic Acid 1 mg PO DAILY 06/21/18 Levothyroxine [Synthroid -] 150 mcg PO DAILY 06/21/18 Phenobarbital 97.2 mg PO BID 06/21/18 levETIRAcetam [Keppra -] 1,500 mg PO BID 06/21/18 Perampanel [Fycompa] 10 mg PO HS 03/05/19 Diazepam [Valium] 5 mg PO Q8H #15 tablet MDD not to exceed 3 per day 03/06/19 Diazepam [Valium] 5 mg PO Q8H #4 tablet MDD 2-3 03/06/19 Diazepam [Valium] 5 mg PO Q8H #4 tablet MDD 3 03/06/19 COPD: No CHF: No Psychiatric Problems: Yes Seizures: Yes Thyroid Disease: Yes - Immunization History Immunization Up to Date: No - Suicide/Smoking/Psychosocial Hx Smoking History: Never smoked Have you smoked in the past 12 months: No Information on smoking cessation initiated: No Hx Alcohol Use: No Drug/Substance Use Hx: No Substance Use Type: None *Physical Exam - Vital Signs Last Vital Signs Temp Pulse Resp BP Pulse Ox 98.1 F 70 19 128/89 97 03/25/19 12:58 03/25/19 12:58 03/25/19 12:58 03/25/19 12:58 03/25/19 12:58 Medical Decision Making - Medical Decision Making 03/25/19 13:59 38 yo F with hx of epilepsy, hypothyroidism, left eye ptosis, low back pain presents to fast track with bilateral leg pain. -upreg -lumbar spine CT -toradol 03/25/19 16:06 CT negative. Patient reports states now she is feeling better and is ambulatory. *DC/Admit/Observation/Transfer Diagnosis at time of Disposition: Leg pain, bilateral - Discharge Dispostion Disposition: HOME Condition at time of disposition: Stable Decision to Admit order: No - Referrals Referrals: Arias Jovel [Primary Care Provider] - Parker Tirado DO [Staff Physician] - - Patient Instructions Printed Discharge Instructions: DI for Leg Pain Additional Instructions: Please see your neurologist tomorrow as scheduled. If you develop any loss of bowel or bladder function, loss of sensation to your legs, inability to feel your legs, inability to walk, or any new or worsening symptoms, please return to the ER. Por favor, sigue tu neurologico manana. Si tus sintomas empeoran, por favor regresa a la roberto de emergencia inmediamente. Print Language: BELGIAN - Post Discharge Activity
[2019-03-25] MEDS ORDERED: KETOROLAC TROMETHAMINE 30 MG/1 ML VIAL IM ONE (14:00)
[2019-03-25] MEDS ORDERED: KETOROLAC TROMETHAMINE 30 MG/1 ML VIAL ONE (14:18)
== END 2019-03-25 16:25 | disposition home or self-care (01) ==
LOC: JERFT 12:55
PROC: 3E0233Z Introduction of Anti-inflammatory into Muscle, Percutaneous Approach (ICD-10-PCS; principal; 2019-03-25)
DX: M79.604 Pain in right leg (principal); M79.605 Pain in left leg; E05.90 Thyrotoxicosis, unspecified without thyrotoxic crisis or storm; G40.909 Epilepsy, unspecified, not intractable, without status epilepticus; H02.402 Unspecified ptosis of left eyelid
CPT/HCPCS: 72131-TC; 84703; 99282-25

== ENCOUNTER 2019-06-04 11:53 | Emergency (ER) | payer OTHER ==
[2019-06-04 12:21] VITALS: BP 129/80; PULSE 78; TEMP 97.9; BMI 27.4
[2019-06-04] MEDS ORDERED: SODIUM CHLORIDE 0.9% 500 ML INFUS.BAG IV ONE (13:50)
--- NOTE | 2019-06-04 13:58 | PDOC ---
History of Present Illness - General Chief Complaint: Lightheaded Stated Complaint: Lightheaded Time Seen by Provider: 06/04/19 12:34 History Source: Patient Exam Limitations: Language Barrier (persian, cyracom [id number]) - History of Present Illness Initial Comments: 06/06/19 12:15 HPI: 39F PMH epilepsy, hypothyroidism presenting w/ 1 week of lightheadness and headaches. Was brought in today bc pt was at the store and bystander called EMS. Pt states she has daily sx that resolve when she takes her home meds and takes a nap. Headache is unchanged from usual. Endorses seizure yesterday and endorses head pain. Denies f/c, n/v, numbness/tingling/weakness, changes in vision/hearing. LMP now. Allergies reviewed Meds reviewed Past History - Past Medical History Allergies/Adverse Reactions: Allergies Allergy/AdvReac Type Severity Reaction Status Date / Time lamotrigine Allergy Severe Verified 03/25/19 13:02 meloxicam Allergy Severe Verified 03/25/19 13:02 Home Medications: Ambulatory Orders Divalproex [Depakote -] 750 mg PO BID 06/21/18 Folic Acid 1 mg PO DAILY 06/21/18 Levothyroxine [Synthroid -] 150 mcg PO DAILY 06/21/18 Phenobarbital 97.2 mg PO BID 06/21/18 levETIRAcetam [Keppra -] 1,500 mg PO BID 06/21/18 Perampanel [Fycompa] 10 mg PO HS 03/05/19 Diazepam [Valium] 5 mg PO Q8H #15 tablet MDD not to exceed 3 per day 03/06/19 Diazepam [Valium] 5 mg PO Q8H #4 tablet MDD 2-3 03/06/19 Diazepam [Valium] 5 mg PO Q8H #4 tablet MDD 3 03/06/19 COPD: No CHF: No Psychiatric Problems: Yes Seizures: Yes Thyroid Disease: Yes - Immunization History Immunization Up to Date: No - Psycho Social/Smoking Cessation Hx Smoking History: Never smoked Have you smoked in the past 12 months: No Information on smoking cessation initiated: No Hx Alcohol Use: No Drug/Substance Use Hx: No Substance Use Type: None Review of Systems - Review of Systems Able to Perform ROS?: Yes Comments:: 06/06/19 12:16 ROS: CONSTITUTIONAL: Denies F / C HEENT: Endorses headache, lightheadedness. Denies changes in vision / hearing, diplopia, blurry vision. RESP: Denies SOB, cough, orthopnea, LEBLANC CARD: Endorses 1 week of occasional palpitations. Denies chest pain GI: Denies N / V / D, abdominal pain, bloody stool, inability to tolerate PO : Denies dysuria, hematuria, frequency SKIN: Denies rashes NEURO: Denies numbness, tingling, weakness Is the patient limited Divehi proficient: Yes *Physical Exam - Vital Signs Last Vital Signs Temp Pulse Resp BP Pulse Ox 97.9 F 78 16 129/80 100 06/04/19 12:00 06/04/19 12:00 06/04/19 12:00 06/04/19 12:00 06/04/19 12:00 - Physical Exam Comments: 06/06/19 12:16 PE: GEN: Well appearing, NAD, comfortable. AAOx3 HEENT: NC/AT, CN II-XII intact. EOMI, PERRLA; left eye proptosis. No facial asymmetry. Moist mucous membranes. Normal voice. Supple neck w/ FROM. CV: S1/S2, RRR, no m/r/g LUNG: CTAB, no wheezes, crackles, rales, rhonchi. GI: soft, ndnt, +BS, no guarding, no rebound. No masses. EXTREMITIES: No obvious deformities of all extremities. SKIN: warm, dry, normal turgor PSYCH: guarded, agitated/hostile NEURO: 5/5 strength UE and LE b/l. symmetric sensation. ambulates w/ normal gait. ED Treatment Course - LABORATORY CBC & Chemistry Diagram: 06/04/19 14:00 06/04/19 14:06 - RADIOLOGY Radiology Studies Ordered: Category Date Time Status CERVICAL SPINE CT W/O CONTR [CT] Stat CT Scan 06/04/19 13:[address] WITHOUT CONTRAST [CT] Stat CT Scan 06/04/19 13:28 Ordered Medical Decision Making - Medical Decision Making 06/04/19 14:27 MDM: 39F w/ 1 week of headache and lightheadedness that resolves w/ nap and normal meds - cbc, cmp, preg, keppra lvl - ua - CT head - EKG 06/04/19 15:42 pt feeling better labs reviewed f/u CT 06/04/19 16:44 CT head and neck - no fracture or acute intracranial pathology DC home Discharge - Discharge Information Problems reviewed: Yes Clinical Impression/Diagnosis: Lightheadedness Condition: Stable Disposition: HOME - Admission No - Follow up/Referral Referrals: Arias Jovel [Primary Care Provider] - - Patient Discharge Instructions Patient Printed Discharge Instructions: DI for Vertigo Additional Instructions: You were treated in the Emergency Department. Continue your home medications as prescribed. Follow up with your primary care doctor regarding this visit in the next 3-5 days. Follow up with your neurologist in the next 3-5 days. Immediately return to the Emergency Department for any new, worsening, or concerning symptoms. Te trataron en el departamento de emergencias. Contine raudel medicamentos caseros segn lo prescrito. Haydee un seguimiento con keyes mdico de atencin primaria con respecto a esta visita en los prximos 3-5 fox. Haydee un seguimiento con keyes neurlogo en los prximos 3-5 fox. Regrese de inmediato al Departamento de Emergencias por cualquier sntoma nuevo , que empeore o que tenga relacin. - Post Discharge Activity
[2019-06-04 14:36] LABS: BASO % 1.2 % (0-2.0); HEMATOCRIT 35.6 % (32.4-45.2); LYMPH % 49.9 % (8-40); MCH 32.1 pg (25.7-33.7); MCHC 33.8 g/dl (32.0-36.0); MEAN CELL VOLUME 95.1 fl (80-96); MEAN PLT VOLUME 7.7 fl (7.5-11.1); MONO % 6.9 % (3.8-10.2); PLATELET COUNT 161 K/MM3 (134-434); RBC 3.74 M/mm3 (3.60-5.2); RDW 13.8 % (11.6-15.6); WHITE BLOOD COUNT 4.9 K/mm3 (4.0-10.0)
[2019-06-04 14:37] LABS: EPI CELLS 0.6 /HPF (0-5/HPF); HYALINE CASTS 0 /lpf (0-8); PH,URINE 6.5 (5.0-8.0); URINE APPEARANCE CLEAR; URINE BACTERIA 7.6 /hpf (NEGATIVE); URINE BILIRUBIN NEGATIVE (NEGATIVE); URINE COLOR YELLOW; URINE GLUCOSE (UA) NEGATIVE (NEGATIVE); URINE KETONE NEGATIVE (NEGATIVE); URINE LEUK ESTERASE NEGATIVE (NEGATIVE); URINE NITRITE NEGATIVE (NEGATIVE); URINE PROTEIN NEGATIVE (NEGATIVE); URINE RBC 101 /hpf (0-4); URINE UROBILINOGEN 0.2 mg/dL (0.2-1.0); URINE WBC 2 /hpf (0-5)
--- NOTE | 2019-06-04 14:41 | PDOC ---
Documentation entered by Freda Cordon SCRIBE, acting as scribe for Miller Whitfield MD. Miller Whitfield MD: This documentation has been prepared by the Neris aguilar Xhesika, SCRIBE, under my direction and personally reviewed by me in its entirety. I confirm that the documentation accurately reflects all work, treatment, procedures, and medical decision making performed by me. Attending Attestation - Resident Resident Name: NealFernando - ED Attending Attestation I have performed the following: I have examined & evaluated the patient, The case was reviewed & discussed with the resident, I agree w/resident's findings & plan, Exceptions are as noted - HPI HPI: 06/04/19 13:54 The patient is a 39 year old female with a PMH of Epilepsy, Hypothyroidism, L eye ptosis who presents to the ED for 1 week of dizziness described as light headed feeling. The patient notes she had a seizure yesterday hitting her head. Pt notes her symptoms resolve when taking her medication and naps. The patient denies shortness of breath. Denies fever, chills, cough, nausea, vomiting, diarrhea and constipation. Denies dysuria, frequency, urgency and hematuria. Allergies:, Lamotrigine, meloxicam Social Hx: Denies current smoking, drinking, or other substance usage. PMD: Stepan Neuro: Ivy - Physicial Exam PE: 06/04/19 13:56 Vitals: Triage Vital signs reviewed General Appearance: no acute distress, well nourished well developed, Head: Atraumatic, normocephalic Eyes: Pupils equal reactive round, extraocular movement intact Neck: Supple;No Nuchal rigidity Chest Wall: Nontender Cardiac: Regular rate and rhythm, no murmurs, no rubs, no gallops, Lungs: Clear to auscultation bilateral, good air movement bilaterally, Abdomen: Soft, nondistended, normal bowel sounds, nontender to palpation Extremities: Full range of motion to all extremities, no cyanosis, clubbing, or edema Skin: Warm and dry, no rashes or lesions, no petechiae Neuro: AOX3; Cranial Nerves 2-12 grossly c intact, Strength intact to all extremities, Sensation intact to all extremities, gait normal Psych: normal mood, normal affect - Medical Decision Making 06/04/19 16:05 Well-appearing no apparent distress with history of epilepsy presents to the ED with 1 month history of lightheadedness We will check labs head CT observe hydrate and reassess Labs CT all within normal limits patient feels better Patient will follow-up with her primary care provider on Friday Findings, need for follow-up and strict return instructions discussed with patient.
[2019-06-04 15:03] LABS: BLOOD UREA NITROGEN 7.7 mg/dL (7-18); CREATININE 0.6 mg/dL (0.55-1.3)
[2019-06-04 15:04] LABS: ALBUMIN 3.4 g/dl (3.4-5.0); BILIRUBIN,TOTAL 0.2 mg/dL (0.2-1); CALCIUM 8.5 mg/dL (8.5-10.1); POTASSIUM 3.7 mmol/L (3.5-5.1); TOT PROT 7.2 g/dl (6.4-8.2)
[2019-06-04] MEDS ORDERED: MECLIZINE HCL 25 MG TABLET (FP) PO ONE (17:00)
[2019-06-04] MEDS ORDERED: MECLIZINE HCL 25 MG TABLET (FP) ONE (17:12)
--- NOTE | 2019-06-06 20:26 | EKG ---
Test Reason : Blood Pressure : / mmHG Vent. Rate : 071 BPM Atrial Rate : 071 BPM P-R Int : 170 ms QRS Dur : 090 ms QT Int : 414 ms P-R-T Axes : 020 062 028 degrees QTc Int : 449 ms NORMAL SINUS RHYTHM NORMAL ECG WHEN COMPARED WITH ECG OF 06-MAR-2019 01:14, NO SIGNIFICANT CHANGE WAS FOUND Confirmed by JUANY ROBERTSON MD ([id number]) on 06/06/2019 8:26:24 PM Referred By: Confirmed By:JUANY ROBERTSON MD
== END 2019-06-04 18:01 | disposition home or self-care (01) ==
LOC: JER 11:53
PROC: 3E0337Z Introduction of Electrolytic and Water Balance Substance into Peripheral Vein, Percutaneous Approach (ICD-10-PCS; principal; 2019-06-04)
DX: R42 Dizziness and giddiness (principal); Z88.8 Allergy status to other drugs, medicaments and biological substances; R56.9 Unspecified convulsions; F99 Mental disorder, not otherwise specified
CPT/HCPCS: 36415; 70450-TC; 72125-TC; 80053; 80177; 81003; 84703; 85025; 93005; 93010; 96360; 99283-25

== ENCOUNTER 2019-06-23 11:31 | Emergency (ER) | payer OTHER ==
[2019-06-23 11:47] VITALS: BMI 27.1
[2019-06-23 13:03] LABS: BASO % 1.3 % (0-2.0); HEMATOCRIT 37.3 % (32.4-45.2); HEMOGLOBIN 12.7 GM/dL (10.7-15.3); LYMPH % 29.2 % (8-40); MCH 31.8 pg (25.7-33.7); MCHC 34.1 g/dl (32.0-36.0); MEAN CELL VOLUME 93.2 fl (80-96); MEAN PLT VOLUME 7.4 fl (7.5-11.1); MONO % 9.7 % (3.8-10.2); NEUT % 58.8 % (42.8-82.8); PLATELET COUNT 177 K/MM3 (134-434); RDW 13.7 % (11.6-15.6); WHITE BLOOD COUNT 6.1 K/mm3 (4.0-10.0)
[2019-06-23] MEDS ORDERED: SODIUM CHLORIDE 1,000 ML IV STA (13:10)
[2019-06-23 13:47] LABS: ALBUMIN 3.8 g/dl (3.4-5.0); BILIRUBIN,TOTAL 0.2 mg/dL (0.2-1); BLOOD UREA NITROGEN 7.8 mg/dL (7-18); CALCIUM 8.7 mg/dL (8.5-10.1); CREATININE 0.6 mg/dL (0.55-1.3); TOT PROT 8.2 g/dl (6.4-8.2)
--- NOTE | 2019-06-23 15:37 | EKG ---
Test Reason : Blood Pressure : / mmHG Vent. Rate : 079 BPM Atrial Rate : 079 BPM P-R Int : 152 ms QRS Dur : 094 ms QT Int : 372 ms P-R-T Axes : 024 075 028 degrees QTc Int : 426 ms NORMAL SINUS RHYTHM NORMAL ECG WHEN COMPARED WITH ECG OF 04-JUN-2019 11:56, NO SIGNIFICANT CHANGE WAS FOUND Confirmed by CLAIRE WALTER MD ([id number]) on 06/23/2019 3:37:07 PM Referred By: Confirmed By:CLAIRE WALTER MD
--- NOTE | 2019-06-23 15:39 | PDOC ---
Documentation entered by Jon Ruvalcaba SCRIBE, acting as scribe for Sanford Mitchell MD. Sanford Mitchell MD: This documentation has been prepared by the Jordon aguilar Daniel, SCRIBE, under my direction and personally reviewed by me in its entirety. I confirm that the documentation accurately reflects all work, treatment, procedures, and medical decision making performed by me. History of Present Illness - General Stated Complaint: CP History Source: Patient Exam Limitations: No Limitations - History of Present Illness Initial Comments: 06/23/19 13:25 The patient is a 39 year old female with a past medical history of epilepsy ( diagnosed at age 13) here today for evaluation of dizziness and headache s/p seizure. The patient reports that she had a seizure at 8:13 AM today and hit her head on the bathroom floor. She reports currently having room spinning dizziness which is worse with movement and a headache in the back of her head. She reports that she had 3 seizures in 05/08, 1 seizure in 06/08, and 1 seizure in 07/08. She states that she recently had a MRI at [facility] and was told that she needed brain surgery. She also notes having a left eye droop after a previous seizure. Patient denies fever, chills. Denies chest pain, shortness of breath. Denies nausea, vomiting, diarrhea, abdominal pain. Allergies: lamotrigine, meloxicam PCP: Arias Jovel Neurologist: Curtis Joiner Neurosurgeon: Juni Melissa Past History - Past Medical History Allergies/Adverse Reactions: Allergies Allergy/AdvReac Type Severity Reaction Status Date / Time lamotrigine Allergy Severe Verified 06/23/19 11:45 meloxicam Allergy Severe Verified 06/23/19 11:45 Home Medications: Ambulatory Orders Divalproex [Depakote -] 750 mg PO BID 06/21/18 Folic Acid 1 mg PO DAILY 06/21/18 Levothyroxine [Synthroid -] 150 mcg PO DAILY 06/21/18 Phenobarbital 97.2 mg PO BID 06/21/18 levETIRAcetam [Keppra -] 1,500 mg PO BID 06/21/18 Perampanel [Fycompa] 10 mg PO HS 03/05/19 Diazepam [Valium] 5 mg PO Q8H #15 tablet MDD not to exceed 3 per day 03/06/19 Cholecalciferol (Vitamin D3) [Vitamin D3] 5,000 unit PO DAILY 06/23/19 COPD: No CHF: No Psychiatric Problems: Yes Seizures: Yes Thyroid Disease: Yes - Immunization History Immunization Up to Date: No - Psycho Social/Smoking Cessation Hx Smoking History: Never smoked Have you smoked in the past 12 months: No Hx Alcohol Use: No Drug/Substance Use Hx: No Substance Use Type: None Review of Systems - Review of Systems Able to Perform ROS?: Yes Comments:: 06/23/19 13:25 CONSTITUTIONAL: No fever, no chills, no fatigue EYES: No visual changes ENT: No ear pain, no sore throat CARDIOVASCULAR: No chest pain, no palpitations RESPIRATORY: No cough, no SOB GI: No abdominal pain, no nausea, no vomiting, no constipation, no diarrhea GENITOURINARY: No dysuria, no frequency, no hematuria MUSKULOSKELETAL: No backpain, no joint pain, no myalgias SKIN: No rash NEURO: +headache. +room spinning dizziness. *Physical Exam - Vital Signs Last Vital Signs Temp Pulse Resp BP Pulse Ox 97.4 F L 84 18 126/98 99 06/23/19 11:45 06/23/19 11:45 06/23/19 11:45 06/23/19 11:45 06/23/19 11:45 - Physical Exam 06/23/19 14:41 CONSTITUTIONAL: Well-appearing; well-nourished; in no apparent distress HEAD: Normocephalic; atraumatic EYES: +ptosis of left eye. PERRL; EOM intact ENMT: External appears normal; normal oropharynx NECK: Supple; non-tender; no cervical lymphadenopathy CARD: Normal S1, S2; no murmurs, rubs, or gallops RESP: Normal chest excursion with respiration; breath sounds clear and equal bilaterally; no wheezes, rhonchi, or rales ABD: Soft, non-distended; non-tender; no palpable organomegaly, no palpable hernias EXT: Normal ROM in all four extremities; non-tender to palpation; distal pulses intact SKIN: Warm, dry, no rash NEURO: Alert and oriented to person, place, and time. Cranial nerves II-XII are grossly intact. Normal speech. Strength is grossly symmetric. No sensory deficits. ED Treatment Course - LABORATORY CBC & Chemistry Diagram: 06/23/19 12:52 06/23/19 12:52 - ADDITIONAL ORDERS Additional order review: Laboratory Results 06/23/19 06/23/19 06/23/19 12:52 12:52 12:52 Sodium 138 Potassium 4.0 Chloride 106 Carbon Dioxide 24 Anion Gap 8 BUN 7.8 Creatinine 0.6 Est GFR (CKD-EPI)AfAm 134.96 Est GFR (CKD-EPI)NonAf 116.44 Random Glucose 81 Calcium 8.7 Total Bilirubin 0.2 AST 14 L ALT 19 Alkaline Phosphatase 54 Total Protein 8.2 Albumin 3.8 Serum , Qual Negative Valproic Acid 43.3 L 06/23/19 12:52 RBC 4.00 MCV 93.2 MCHC 34.1 RDW 13.7 MPV 7.4 L Neutrophils % 58.8 D Lymphocytes % 29.2 D Monocytes % 9.7 Eosinophils % 1.0 Basophils % 1.3 - RADIOLOGY Radiology Studies Ordered: Category Date Time Status CERVICAL SPINE CT W/O CONTR [CT] Stat CT Scan 06/23/19 13:[address] WITHOUT CONTRAST [CT] Stat CT Scan 06/23/19 13:09 Completed - Medications Given in the ED: ED Medications Discontinued Medications Generic Name Dose Route Start Last Admin Trade Name Freq PRN Reason Stop Dose Admin Sodium Chloride 1,000 mls @ 1,000 mls/hr 06/23/19 13:10 06/23/19 13:13 Normal Saline - IV 06/23/19 14:09 1,000 mls/hr ASDIR STA Administration Medical Decision Making - Medical Decision Making 06/23/19 15:00 Spoke with patient's neurologist Dr. Joiner. 06/23/19 15:36 Patient is a 39-year-old female with history of polypharmacy intractable seizures who was brought in by EMS after an unwitnessed generalized tonic- clonic seizure with head trauma. Patient reports loss of consciousness and complains of diffuse neck pain. Patient reports that she is compliant with her medication regimen and has not had fevers chills nausea vomiting diarrhea recent travel. In the ER, patient is awake and alert, ANO x3, with no focal neuro deficits with the exception of left upper lip ptosis which is known to be old. CT of head and cervical spine reveals no evidence of traumatic injury. Valproic acid level is as noted. Keppra and phenobarbital levels will not be available. I discussed the case with Dr. Joiner, patient's neurologist who advises me the patient can be safely discharged with follow-up with him in 2 to 3 days. I discussed the plan of care with the patient and she is expressed understanding. Will discharge. Discharge - Discharge Information Problems reviewed: Yes Clinical Impression/Diagnosis: Seizure Condition: Stable Disposition: HOME - Follow up/Referral Referrals: Arias Jovel [Primary Care Provider] - - Patient Discharge Instructions Patient Printed Discharge Instructions: DI for Seizure Disorder -- Adult Print Language: MONGOLIAN - Post Discharge Activity
[2019-06-23 16:13] VITALS: BP 133/66; PULSE 97; TEMP 97.9
== END 2019-06-23 16:00 | disposition home or self-care (01) ==
LOC: JER 11:31
PROC: 3E0337Z Introduction of Electrolytic and Water Balance Substance into Peripheral Vein, Percutaneous Approach (ICD-10-PCS; principal; 2019-06-23)
DX: R56.9 Unspecified convulsions (principal); E03.9 Hypothyroidism, unspecified; F99 Mental disorder, not otherwise specified
CPT/HCPCS: 36415; 70450-TC; 72125-TC; 80053; 80164; 80177; 80184; 84703; 85025; 93005; 93010; 99283-25; J7030

== ENCOUNTER 2019-07-24 08:06 | Emergency (ER) | payer OTHER ==
[2019-07-24 08:17] VITALS: TEMP 97.8; BMI 27.1
--- NOTE | 2019-07-24 08:38 | PDOC ---
History of Present Illness - General Chief Complaint: Headache Stated Complaint: HEADACHE,RAFAELA Time Seen by Provider: 07/24/19 08:30 - History of Present Illness Initial Comments: 07/24/19 08:32 CHIEF COMPLAINT: headache/dizziness HISTORY OF PRESENT ILLNESS: 39 yo F with hx of epilepsy and "thyroid problem" presents to ED with headache and dizziness x 2 days. Patient reports the headache improved yesterday but worsened again today. Per patient, her doctor did bloodwork recently and told her she needed to up her dosing of Depakote so since this past Friday she has increased her dosing. Patient reports LMP 07/12 , hx of tubal ligation. Neurologist: Dr. Rhys Acevedo PCP: Dr. Jovel No recent travel or sick contacts. PAST MEDICAL HISTORY: Denies past medical history FAMILY HISTORY: Denies SOCIAL HISTORY: Denies tobacco, alcohol, illicit drug use. SURGICAL HISTORY: Denies ALLERGIES: No known drug allergies REVIEW OF SYSTEMS General/Constitutional: Denies fever or chills. Denies weakness, weight change. HEENT: Denies change in vision. Denies ear pain or discharge. Denies sore throat. Cardiovascular: Denies chest pain or shortness of breath. Respiratory: Denies cough, wheezing, or hemoptysis. Gastrointestinal: Denies nausea, vomiting, diarrhea or constipation. Denies rectal bleeding. Genitourinary: Denies dysuria, frequency, or change in urination. Musculoskeletal: Denies joint or muscle swelling or pain. Denies neck or back pain. Skin: Denies rash or easy bruising. Neurologic: Headache, vertigo x 2 days. Denies loss of consciousness, or loss of sensation. Psychiatric: Denies depression or anxiety. PHYSICAL EXAM General Appearance: Well-appearing, appropriately dressed. No apparent distress , no intoxication. HEENT: EOMI, PERRLA, normal ENT inspection, normal voice, TMs normal, pharynx normal. No conjunctival pallor. No photophobia, scleral icterus. Neck: Supple. Trachea midline. No tenderness, rigidity, carotid bruit, stridor , lymphadenopathy, or thyromegaly. Respiratory/Chest: Lungs CTAB. No shortness of breath, chest tenderness, respiratory distress, accessory muscle use. No crackles, rales, rhonchi, stridor , wheezing, dullness Cardiovascular: RRR. S1, S2. No JVD, murmur, bradycardia, tachycardia. Vascular Pulses: Dorsalis-Pedis (R): 2+, Dorsalis-Pedis (L): 2+ Gastrointestinal/Abdominal: Normal bowel sounds. Abdomen soft, non-distended. No tenderness or rebound tenderness. No organomegaly, pulsatile mass, guarding , hernia, hepatomegaly, splenomegaly. Lymphatic: No adenopathy, tenderness. Musculoskeletal/Extremities: Normal inspection. FROM of all extremities, normal capillary refill. Pelvis Stable. No CVA tenderness. No tenderness to extremities, pedal edema, swelling, erythema or deformity. Integumentary: Appropriate color, dry, warm. No cyanosis, erythema, jaundice or rash Neurologic: appeals referee II-XII intact. Fully oriented, alert. Appropriate mood/affect. Motor strength 5/5. No appreciable EOM palsy, facial droop or sensory deficit. 07/24/19 08:44 Past History - Past Medical History Allergies/Adverse Reactions: Allergies Allergy/AdvReac Type Severity Reaction Status Date / Time lamotrigine Allergy Severe Verified 07/24/19 08:12 meloxicam Allergy Severe Verified 07/24/19 08:12 Home Medications: Ambulatory Orders Divalproex [Depakote -] 750 mg PO BID 06/21/18 Folic Acid 1 mg PO DAILY 06/21/18 Levothyroxine [Synthroid -] 150 mcg PO DAILY 06/21/18 Phenobarbital 97.2 mg PO BID 06/21/18 levETIRAcetam [Keppra -] 1,500 mg PO BID 06/21/18 Perampanel [Fycompa] 10 mg PO HS 03/05/19 Diazepam [Valium] 5 mg PO Q8H #15 tablet MDD not to exceed 3 per day 03/06/19 Cholecalciferol (Vitamin D3) [Vitamin D3] 5,000 unit PO DAILY 06/23/19 COPD: No CHF: No Psychiatric Problems: Yes Seizures: Yes Thyroid Disease: Yes - Immunization History Immunization Up to Date: No - Psycho Social/Smoking Cessation Hx Smoking History: Never smoked Have you smoked in the past 12 months: No Hx Alcohol Use: No Drug/Substance Use Hx: No Substance Use Type: None *Physical Exam - Vital Signs Last Vital Signs Temp Pulse Resp BP Pulse Ox 97.8 F 94 H 18 107/73 97 07/24/19 08:13 07/24/19 08:13 07/24/19 08:13 07/24/19 08:13 07/24/19 08:13 ED Treatment Course - LABORATORY CBC & Chemistry Diagram: 07/24/19 09:55 07/24/19 09:55 Medical Decision Making - Medical Decision Making 07/24/19 08:47 39 yo F with hx of epilepsy and "thyroid problem" presents to ED with headache and dizziness x 2 days. -labs -IVF, toradol 07/24/19 12:50 Labs unremarkable. Depakote level within therapeutic level. Symptoms likely secondary to adverse affect of increased medication dosing. Patient reassessed after administration of meds. Patient states she is feeling better. Discussed with patient importance of following up with neurology and to return to previous dosing of depakote until further evaluation by neuro and PCP. Patient states she will f/u with neurology this Friday when the office is open and that she has an appt with her PCP on the of this month. Advised patient of signs and symptoms for return to ED. Patient verbalized understanding and agrees to plan. 07/24/19 12:57 Discharge - Discharge Information Problems reviewed: Yes Clinical Impression/Diagnosis: Vertigo Headache Qualifiers: Headache type: other headache syndrome Qualified Code(s): G44.89 - Other headache syndrome Adverse effects of medication Qualifiers: Encounter type: initial encounter Qualified Code(s): T50.905A - Adverse effect of unspecified drugs, medicaments and biological substances, initial encounter Condition: Stable Disposition: HOME - Admission No - Follow up/Referral Referrals: Arias Jovel [Primary Care Provider] - - Patient Discharge Instructions Patient Printed Discharge Instructions: DI for Vertigo, DI for Headache Additional Instructions: As discussed you must follow-up with your neurologist and primary care provider provider within the next week for continued monitoring of your symptoms. Your evaluation is NOT COMPLETE until you have seen your doctors. If you develop any worsening headache, change in vision, weakness, nausea, vomiting, fever, or any new or worsening symptoms, please return to the ER. - Post Discharge Activity
[2019-07-24] MEDS ORDERED: KETOROLAC TROMETHAMINE 15 MG/ML VIAL IVPUSH ONE (09:27)
[2019-07-24] MEDS ORDERED: KETOROLAC TROMETHAMINE 15 MG/ML VIAL ONE (09:45)
[2019-07-24 10:21] LABS: BASO % 0.4 % (0-2.0); EOS % 0.6 % (0-4.5); HEMATOCRIT 36.6 % (32.4-45.2); HEMOGLOBIN 12.2 GM/dL (10.7-15.3); LYMPH % 37.4 % (8-40); MCH 30.5 pg (25.7-33.7); MCHC 33.4 g/dl (32.0-36.0); MEAN CELL VOLUME 91.2 fl (80-96); MEAN PLT VOLUME 7.9 fl (7.5-11.1); MONO % 11.1 % (3.8-10.2); NEUT % 50.5 % (42.8-82.8); PLATELET COUNT 177 K/MM3 (134-434); RBC 4.01 M/mm3 (3.60-5.2); RDW 13.7 % (11.6-15.6); WHITE BLOOD COUNT 3.7 K/mm3 (4.0-10.0)
[2019-07-24 10:49] LABS: ALBUMIN 3.5 g/dl (3.4-5.0); BILIRUBIN,TOTAL 0.2 mg/dL (0.2-1); BLOOD UREA NITROGEN 8.5 mg/dL (7-18); CALCIUM 8.8 mg/dL (8.5-10.1); CREATININE 0.6 mg/dL (0.55-1.3); TOT PROT 7.7 g/dl (6.4-8.2)
[2019-07-24 13:39] VITALS: BP 114/78; PULSE 84
== END 2019-07-24 13:40 | disposition home or self-care (01) ==
LOC: JER 08:06
PROC: 3E033GC Introduction of Other Therapeutic Substance into Peripheral Vein, Percutaneous Approach (ICD-10-PCS; principal; 2019-07-24)
PROC: 3E0333Z Introduction of Anti-inflammatory into Peripheral Vein, Percutaneous Approach (ICD-10-PCS; 2019-07-24)
DX: R51 Headache (principal); R42 Dizziness and giddiness; T42.6X5A Adverse effect of other antiepileptic and sedative-hypnotic drugs, initial encounter; Y92.038 Other place in apartment as the place of occurrence of the external cause; G40.909 Epilepsy, unspecified, not intractable, without status epilepticus; E07.9 Disorder of thyroid, unspecified; Z88.8 Allergy status to other drugs, medicaments and biological substances
CPT/HCPCS: 36415; 80053; 80164; 80177; 80184; 85025; 96374; 96375; 99283-25

== ENCOUNTER 2019-07-28 09:58 | Emergency (ER) | payer OTHER ==
[2019-07-28 10:10] VITALS: BMI 27.1
--- NOTE | 2019-07-28 11:46 | PDOC ---
History of Present Illness - General Chief Complaint: Lightheaded Stated Complaint: DIZZINESS Time Seen by Provider: 07/28/19 10:40 History Source: Patient Exam Limitations: Language Barrier (shake cutter ID#[id number]) Past History - Past Medical History Allergies/Adverse Reactions: Allergies Allergy/AdvReac Type Severity Reaction Status Date / Time lamotrigine Allergy Severe Verified 07/28/19 10:07 meloxicam Allergy Severe Verified 07/28/19 10:07 Home Medications: Ambulatory Orders Divalproex [Depakote -] 750 mg PO BID 06/21/18 Folic Acid 1 mg PO DAILY 06/21/18 Levothyroxine [Synthroid -] 150 mcg PO DAILY 06/21/18 Phenobarbital 97.2 mg PO BID 06/21/18 levETIRAcetam [Keppra -] 1,500 mg PO BID 06/21/18 Perampanel [Fycompa] 10 mg PO HS 03/05/19 Diazepam [Valium] 5 mg PO Q8H #15 tablet MDD not to exceed 3 per day 03/06/19 Cholecalciferol (Vitamin D3) [Vitamin D3] 5,000 unit PO DAILY 06/23/19 COPD: No CHF: No Psychiatric Problems: Yes Seizures: Yes Thyroid Disease: Yes - Immunization History Immunization Up to Date: No - Psycho Social/Smoking Cessation Hx Smoking History: Never smoked Have you smoked in the past 12 months: No Hx Alcohol Use: No Drug/Substance Use Hx: No Substance Use Type: None *Physical Exam - Vital Signs Last Vital Signs Temp Pulse Resp BP Pulse Ox 98.2 F 81 18 110/76 98 07/28/19 10:07 07/28/19 10:07 07/28/19 10:07 07/28/19 10:07 07/28/19 10:07 - Physical Exam General Appearance: No: Apparent Distress HEENT: positive: EOMI, YOANA, Other (no nystagmus noted) Respiratory/Chest: positive: Lungs Clear, Normal Breath Sounds. negative: Respiratory Distress Cardiovascular: positive: Regular Rhythm, Regular Rate, S1, S2. negative: Murmur Neurologic: positive: scoop filler II-XII NML intact, Alert, Normal Mood/Affect, Motor Strength 5/5, Finger to Nose (normal) Medical Decision Making - Medical Decision Making 39 y/o F hx of epilepsy (on phenobarbital, depakote, keppra) and hypothyroidism presents with lightheadedness and generalized GONZALES x 1 month since her neurologist increased her depakote dose from 750 mg daily to 750 mg BID. Patient was seen in the ED 4 days for same complaints and noted to have therapeutic levels of her meds. Patient was told to decrease her depakote dose and f/u with her neurologist. Patient states though she has been unable to reach her neurologist and couldn't reach other neurologists either so came back to ED. States she did not want to decrease her dose until she saw the specialist. Denies fever, URI sxs, sob, cp, abd pain, vomiting, visual/gait changes, weakness of extremities. No focal deficits Patient had recent CT head last month which was negative Spoke to patient's neuro, Dr. Curtis Joiner, who states she can decrease her depakote dose back to 750 mg daily and f/u with him in 2 days Info given to patient stable for dc 07/28/19 11:44 Discharge - Discharge Information Problems reviewed: Yes Clinical Impression/Diagnosis: Dizziness Condition: Stable Disposition: HOME - Admission No - Additional Discharge Information Prescription Drug Monitoring Program (I-STOP) results: I-STOP not reviewed - Follow up/Referral Referrals: Arias Jovel [Primary Care Provider] - Curtis Joiner MD [Non Staff, Medical] - 2 Days - Patient Discharge Instructions Patient Printed Discharge Instructions: DI for Dizziness-Nonvertigo Additional Instructions: Thank you for choosing [facility]. It was a pleasure taking care of you. Please take Depakote 750 mg daily Follow-up with Dr. Joiner in 2 days Return to the Emergency Department if your symptoms worsen or persist, you have vomiting, weakness of extremities (arms and/or legs), changes in vision or walking or other concerning symptoms. [facility]. Fue un placer cuidar de ti. [place] Depakote 750 mg al da. Seguimiento con el Dr. Joiner en 2 fox. Regrese al departamento de emergencias si raudel sntomas empeoran o persisten, tiene vmitos, debilidad de las extremidades (brazos y / o piernas), cambios en la visin o al caminar u otros sntomas relacionados. - Post Discharge Activity
[2019-07-28 12:03] VITALS: BP 120/85; TEMP 98.1
[2019-07-28 12:04] VITALS: PULSE 71
== END 2019-07-28 12:04 | disposition home or self-care (01) ==
LOC: JER 09:58
DX: R42 Dizziness and giddiness (principal); E03.9 Hypothyroidism, unspecified; R51 Headache; F99 Mental disorder, not otherwise specified; R56.9 Unspecified convulsions
CPT/HCPCS: 99283-25

== ENCOUNTER 2019-08-01 13:02 | Emergency (ER) | payer OTHER ==
[2019-08-01 13:07] VITALS: TEMP 99; BMI 27.1
--- NOTE | 2019-08-01 13:21 | PDOC ---
History of Present Illness - General Chief Complaint: Lightheaded Stated Complaint: vertigo Time Seen by Provider: 08/01/19 13:17 History Source: Patient - History of Present Illness Timing/Duration: reports: other Severity: Yes: severe Past History - Past Medical History Allergies/Adverse Reactions: Allergies Allergy/AdvReac Type Severity Reaction Status Date / Time lamotrigine Allergy Severe Verified 08/01/19 13:07 meloxicam Allergy Severe Verified 08/01/19 13:07 Home Medications: Ambulatory Orders Divalproex [Depakote -] 750 mg PO BID 06/21/18 Folic Acid 1 mg PO DAILY 06/21/18 Levothyroxine [Synthroid -] 150 mcg PO DAILY 06/21/18 Phenobarbital 97.2 mg PO BID 06/21/18 levETIRAcetam [Keppra -] 1,500 mg PO BID 06/21/18 Perampanel [Fycompa] 10 mg PO HS 03/05/19 Diazepam [Valium] 5 mg PO Q8H #15 tablet MDD not to exceed 3 per day 03/06/19 Cholecalciferol (Vitamin D3) [Vitamin D3] 5,000 unit PO DAILY 06/23/19 Acetaminophen [Tylenol -] 1,000 mg PO Q6H #30 tablet 08/01/19 Meclizine HCl [Antivert -] 25 mg PO QID #28 tablet 08/01/19 COPD: No CHF: No Psychiatric Problems: Yes Seizures: Yes Thyroid Disease: Yes - Immunization History Immunization Up to Date: No - Psycho Social/Smoking Cessation Hx Smoking History: Never smoked Have you smoked in the past 12 months: No Hx Alcohol Use: No Drug/Substance Use Hx: No Substance Use Type: None Review of Systems - Review of Systems Constitutional: No: Chills, Fever HEENTM: No: Blurred Vision ABD/GI: No: Nausea, Vomiting Neurological: Yes: Headache, Dizziness. No: Numbness, Weakness *Physical Exam - Vital Signs Last Vital Signs Temp Pulse Resp BP Pulse Ox 99 F 74 18 136/94 99 08/01/19 13:04 08/01/19 13:04 08/01/19 13:04 08/01/19 13:04 08/01/19 13:04 - Physical Exam General Appearance: Yes: Appropriately Dressed, Moderate Distress HEENT: positive: Normal Voice Neck: positive: Supple Respiratory/Chest: positive: Lungs Clear, Normal Breath Sounds. negative: Respiratory Distress Cardiovascular: positive: Regular Rate, S1, S2 Integumentary: positive: Dry, Warm, Swelling Neurologic: positive: Fully Oriented, Alert, Normal Mood/Affect, Motor Strength 5/5, Finger to Nose (no drift, no ataxia) Medical Decision Making - Medical Decision Making 08/01/19 13:20 39 yo F, history of epilepsy on multiple meds, hypothyroid here with persistent headache with vertigo that has been present for over a month. This is patient's 3rd visit for symptoms. Previous labs and neuroimaging has been normal. On initial visit on 07/24, patient had told ED staff that she noticed symptoms after neurologist had increased her dose of Depakote but has since had dose reduce back to what she has been on for the past 2 years but states symptoms are persistent. States headache diffuse and that vertigo worse when she stands up and turns head in certain directions. No visual changes, sensory changes, nausea, vomiting or focal weakness. Last seizure 07/08. Patient states she was not given prescriptions to go home with on prior visits. Follows up with neurologist, Dr. Curtis Joiner see exam GONZALES w/ vertigo Persistent x 1 month Prior labs and neuroimaging unremarkable at R Not given any rxs on prior visit F/u with neuro Manjit uncomfortable here w/ reports of vertigo when standing and turning head, no focal deficits and normal cerebellar exam -meclizine -reglan -IVF -reassess -anticipate dc w/ symptomatic tx and neuro f/u 08/01/19 14:37 Patient reports feeling significantly better with meds. Able to stand and walk with very minimal dizziness per patient. Will discharge with prescription and have patient contact her neurologist in the a.m. Discharge - Discharge Information Problems reviewed: Yes Clinical Impression/Diagnosis: Vertigo Headache Qualifiers: Headache type: unspecified Headache chronicity pattern: unspecified pattern Intractability: not intractable Qualified Code(s): R51 - Headache Condition: Improved Disposition: HOME - Additional Discharge Information Prescriptions: Acetaminophen [Tylenol -] 1,000 mg PO Q6H #30 tablet Meclizine HCl [Antivert -] 25 mg PO QID #28 tablet - Follow up/Referral Referrals: Arias Jovel [Primary Care Provider] - - Patient Discharge Instructions Additional Instructions: Please take medications as directed and follow-up with your neurologist in the a.m. - Post Discharge Activity
[2019-08-01] MEDS ORDERED: METOCLOPRAMIDE HCL INJECTION 10 MG/2 ML VIAL IVPB ONE (13:25)
[2019-08-01] MEDS ORDERED: SODIUM CHLORIDE 1,000 ML IV STA (13:25)
[2019-08-01] MEDS ORDERED: MECLIZINE HCL 25 MG TABLET (FP) PO ONE (13:26)
[2019-08-01] MEDS ORDERED: METOCLOPRAMIDE HCL INJECTION 10 MG/2 ML VIAL ONE (13:36)
[2019-08-01] MEDS ORDERED: MECLIZINE HCL 25 MG TABLET (FP) ONE (13:36)
[2019-08-01 14:57] VITALS: BP 105/71; PULSE 80
== END 2019-08-01 14:58 | disposition home or self-care (01) ==
LOC: JER 13:02
PROC: 3E033GC Introduction of Other Therapeutic Substance into Peripheral Vein, Percutaneous Approach (ICD-10-PCS; principal; 2019-08-01)
DX: R51 Headache (principal); R42 Dizziness and giddiness; G40.909 Epilepsy, unspecified, not intractable, without status epilepticus; E03.9 Hypothyroidism, unspecified; F99 Mental disorder, not otherwise specified; Z88.8 Allergy status to other drugs, medicaments and biological substances
CPT/HCPCS: 96374; 99281-25; J7030

== ENCOUNTER 2019-08-03 20:51 | Emergency (ER) | payer OTHER ==
[2019-08-03 21:16] VITALS: BP 106/81; PULSE 87; TEMP 97.9; BMI 27.1
== END 2019-08-03 21:30 | disposition left against medical advice (07) ==
LOC: JER 20:51
DX: Z53.21 Procedure and treatment not carried out due to patient leaving prior to being seen by health care provider (principal)
CPT/HCPCS: 99281-25

== ENCOUNTER 2019-08-19 11:58 | Emergency (ER) | payer OTHER ==
--- NOTE | 2019-08-19 12:16 | PDOC ---
History of Present Illness - General Stated Complaint: DIZZINESS Time Seen by Provider: 08/19/19 12:14 - History of Present Illness Initial Comments: 08/19/19 13:07 39 y/o F hx of epilepsy presents to the ED with headache and vertigo that began about 3 hrs ago. This is her 4th visit to the ER this month for the same complaint. ON her last visit she was discharged with prescription for meclizine which she was unable to take today because she did not have access to her room. 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 She is to follow up with her neurologist on 09/13/2018. She had been headache free since her last visit. Headache today was gradual in onset, is throbbing in nature and is all over her head. Pain worsens if she sits up and is relived by lying down. Pain is 7/1o at this time and is constant in nature. She has accompanying lightheadedness and vertigo. SHe denies any head trauma, syncope. LOC, fevers, nausea, vomiting, diarrhea, bloody stool. She endorses chills, 08/19/19 13:08 08/19/19 13:11 08/19/19 13:16 08/19/19 13:19 Past History - Past Medical History Allergies/Adverse Reactions: Allergies Allergy/AdvReac Type Severity Reaction Status Date / Time lamotrigine Allergy Severe Verified 08/03/19 21:16 meloxicam Allergy Severe Verified 08/03/19 21:16 Home Medications: Ambulatory Orders Divalproex [Depakote -] 750 mg PO BID 06/21/18 Folic Acid 1 mg PO DAILY 06/21/18 Levothyroxine [Synthroid -] 150 mcg PO DAILY 06/21/18 Phenobarbital 97.2 mg PO BID 06/21/18 levETIRAcetam [Keppra -] 1,500 mg PO BID 06/21/18 Perampanel [Fycompa] 10 mg PO HS 03/05/19 Cholecalciferol (Vitamin D3) [Vitamin D3] 5,000 unit PO DAILY 06/23/19 Acetaminophen [Tylenol -] 1,000 mg PO Q6H #30 tablet 08/01/19 Meclizine HCl [Antivert -] 25 mg PO QID #28 tablet 08/01/19 COPD: No CHF: No Psychiatric Problems: Yes Seizures: Yes Thyroid Disease: Yes - Immunization History Immunization Up to Date: No - Psycho Social/Smoking Cessation Hx Smoking History: Never smoked Have you smoked in the past 12 months: No Hx Alcohol Use: No Drug/Substance Use Hx: No Substance Use Type: None Review of Systems - Review of Systems Constitutional: Yes: Chills. No: Fever HEENTM: No: Eye Pain, Blurred Vision Respiratory: No: Cough, Shortness of Breath Cardiac (ROS): Yes: Lightheadedness. No: Chest Pain ABD/GI: No: Nausea, Vomiting : No: Burning, Dysuria Musculoskeletal: No: Back Pain, Joint Pain *Physical Exam - Physical Exam 08/19/19 13:22 GENERAL: Awake, alert, and fully oriented, tired looking HEAD: No signs of trauma, normocephalic, atraumatic EYES: PERRLA, EOMI, sclera anicteric, conjunctiva clear ENT: Auricles normal inspection, hearing grossly normal, nares patent, oropharynx clear without exudates. Moist mucosa NECK: Normal ROM, supple, no lymphadenopathy, JVD, or masses LUNGS: No distress, speaks full sentences, clear to auscultation bilaterally HEART: Regular rate and rhythm, normal S1 and S2, no murmurs, rubs or gallops. ABDOMEN: Soft,+ epigastric tenderness, normoactive bowel sounds. No guarding, no rebound. No masses EXTREMITIES : Normal inspection, Normal range of motion, no edema. No clubbing or cyanosis NEUROLOGICAL: Cranial nerves II through XII grossly intact. Normal speech, no focal sensorimotor deficits SKIN: Warm, Dry, normal turgor, no rashes or lesions noted 08/19/19 13:29 ED Treatment Course - LABORATORY CBC & Chemistry Diagram: 08/19/19 13:38 08/19/19 13:38 Medical Decision Making - Medical Decision Making 08/19/19 13:33 39 y/o F hx of epilepsy presents to the ED with headache and vertigo that began about 3 hrs ago has had extensive workup as of this time head CT from last month showed no intracranial pathology Brain MRI showed hippocampal sclerosis pt has follow up with neurologist in [place]. workup ekg, cbc, cmp, lipase (epigastric tenderness), Meds: tylenol, reglan, iv fluids (NS) , meclizine. EKG: nsr, unchanged from last months ekg 08/19/19 14:13 Pt. reassessed, reports no improvement at this time. 08/19/19 16:20 Pt reassessed, now complaining of leg cramps Toradol 30mg IV ordered PT has taken Advil in the past with no allergic reactions/issues. 08/19/19 16:50 Pt able to ambulate in ED feeling better concerned about missing seizure meds, so will be given her PO seizure medications here able to ambulate in the ED Discharge - Discharge Information Problems reviewed: Yes Clinical Impression/Diagnosis: Dizziness Headache Qualifiers: Headache type: unspecified Headache chronicity pattern: unspecified pattern Intractability: not intractable Qualified Code(s): R51 - Headache Condition: Improved Disposition: HOME - Admission No - Follow up/Referral Referrals: Abraham Alston [Primary Care Provider] - - Patient Discharge Instructions Patient Printed Discharge Instructions: DI for Headache, Vertigo Additional Instructions: You were seen in the ER for headache Be sure to follow up with your neurologist. Follow up with your primary care doctor in the next few days. . your care is not complete until you do so RETURN TO THE ER -if your medications at home do not relieve the pain -you experience fevers, chills, nausea, vomiting or any worsening symptoms from today - Post Discharge Activity
[2019-08-19 12:32] VITALS: BP 109/79; PULSE 75; BMI 24.2
[2019-08-19] MEDS ORDERED: SODIUM CHLORIDE 0.9% 500 ML INFUS.BAG IV ONE (13:03)
[2019-08-19] MEDS ORDERED: MECLIZINE HCL 25 MG TABLET (FP) PO ONE ×2 (13:03→15:18)
[2019-08-19] MEDS ORDERED: METOCLOPRAMIDE HCL INJECTION 10 MG/2 ML VIAL IVPUSH ONE (13:03)
[2019-08-19] MEDS ORDERED: ACETAMINOPHEN 1000 MG/100 ML VIAL (NON FORMULARY) IVPB ONE (13:03)
[2019-08-19] MEDS ORDERED: METOCLOPRAMIDE HCL INJECTION 10 MG/2 ML VIAL ONE (13:52)
[2019-08-19] MEDS ORDERED: MECLIZINE HCL 25 MG TABLET (FP) ONE ×2 (13:52→15:20)
[2019-08-19] MEDS ORDERED: ACETAMINOPHEN INJECTION 100 ML IVPB ONE (13:53)
[2019-08-19 13:59] LABS: BASO % 0.9 % (0-2.0); EOS % 0.7 % (0-4.5); HEMATOCRIT 38.4 % (32.4-45.2); HEMOGLOBIN 12.8 GM/dL (10.7-15.3); LYMPH % 42.5 % (8-40); MCH 30.1 pg (25.7-33.7); MCHC 33.3 g/dl (32.0-36.0); MEAN CELL VOLUME 90.5 fl (80-96); MEAN PLT VOLUME 7.6 fl (7.5-11.1); MONO % 8.4 % (3.8-10.2); NEUT % 47.5 % (42.8-82.8); PLATELET COUNT 193 K/MM3 (134-434); RBC 4.24 M/mm3 (3.60-5.2); RDW 14.4 % (11.6-15.6); WHITE BLOOD COUNT 4.4 K/mm3 (4.0-10.0)
--- NOTE | 2019-08-19 14:18 | PDOC ---
Documentation entered by Kristina Harry SCRIBE, acting as scribe for Dulce Prasad MD. Dulce Prasad MD: This documentation has been prepared by the Kamryn aguilar Nirvannie, SCRIBE, under my direction and personally reviewed by me in its entirety. I confirm that the documentation accurately reflects all work, treatment, procedures, and medical decision making performed by me. Attending Attestation - Resident Resident Name: Ayla Crowder - ED Attending Attestation I have performed the following: I have examined & evaluated the patient, The case was reviewed & discussed with the resident, I agree w/resident's findings & plan, Exceptions are as noted - HPI HPI: 08/19/19 13:55 The patient is a 39 year old female, with a significant past medical history of epilepsy and multiple ER visits for similar complaints (x4), who presents to the emergency department with 3 hours of headache and dizziness. Patient describes her headache as a gradual onset, 7/10, throbbing sensation to the entire head worsened with sitting up and alleviated by lying with associated dizziness. Patient notes today she was unable to take the Meclizine she was prescribed secondary to her medication being located in another room (lives in group housing). She denies any seizure today. She denies any LOC, head/neck trauma, or urinary symptoms. She denies recent chest pain or shortness of breath. Allergies: Lamotrigine, Meloxicam Primary Care Physician: Dr. Alston - Physicial Exam PE: 08/19/19 14:14 awake alert lungs clear bilat heart rrr no mrg abd soft nt nd ext wwp. nuero strength 5/5 all four ext. speech clear. finger to nose normal. - Medical Decision Making 08/19/19 14:15 39 yo F h/o epilepsy, mult ed visits, currently living in a [place] [facility] her e/co headache and vertigo. was unable to take her medication because she is in a shleter currently. states headache and vertigo is similar to ones she has had in the past. no f/c no head trauma. last seizure was 5 days ago, and prior to that in june 2019. average is one/ month. no new weakness numbness or othe rcomplaints. also requesting food because she is hungry. normal cerebellar exam here in ed plan meclizine. chart reviewed pt has recent MRI day prior. fu with neurology.
[2019-08-19 14:50] LABS: ALBUMIN 3.9 g/dl (3.4-5.0); BILIRUBIN,TOTAL 0.2 mg/dL (0.2-1); BLOOD UREA NITROGEN 7.4 mg/dL (7-18); CALCIUM 8.9 mg/dL (8.5-10.1); CREATININE 0.7 mg/dL (0.55-1.3); POTASSIUM 3.9 mmol/L (3.5-5.1); TOT PROT 8.9 g/dl (6.4-8.2)
[2019-08-19] MEDS ORDERED: KETOROLAC TROMETHAMINE 30 MG/1 ML VIAL IVPUSH ONE (15:56)
[2019-08-19] MEDS ORDERED: KETOROLAC TROMETHAMINE 30 MG/1 ML VIAL ONE (16:13)
[2019-08-19] MEDS ORDERED: levETIRAcetam 500 MG TABLET (FP) PO ONE ×2 (16:47→16:52)
[2019-08-19] MEDS ORDERED: VALPROATE SODIUM 250 MG/5 ML UNIT DOSE CUP PO ONE (16:49)
[2019-08-19] MEDS ORDERED: PHENobarbital 15 MG TABLET PO ONE (16:50)
[2019-08-19] MEDS ORDERED: PHENobarbital 30 MG TABLET ONE ×2 (16:52→16:54)
--- NOTE | 2019-08-20 15:23 | EKG ---
Test Reason : Blood Pressure : / mmHG Vent. Rate : 065 BPM Atrial Rate : 065 BPM P-R Int : 162 ms QRS Dur : 102 ms QT Int : 412 ms P-R-T Axes : 009 059 021 degrees QTc Int : 428 ms NORMAL SINUS RHYTHM NONSPECIFIC INTRAVENTRICULAR CONDUCTION DEFECT WHEN COMPARED WITH ECG OF 23-JUN-2019 11:51, NO SIGNIFICANT CHANGE WAS FOUND Confirmed by WILSON GILLIAM MD ([id number]) on 08/20/2019 3:23:23 PM Referred By: Confirmed By:WILSON GILLIAM MD
== END 2019-08-19 19:31 | disposition home or self-care (01) ==
LOC: JER 11:58
PROC: 3E033NZ Introduction of Analgesics, Hypnotics, Sedatives into Peripheral Vein, Percutaneous Approach (ICD-10-PCS; principal; 2019-08-19)
PROC: 3E033GC Introduction of Other Therapeutic Substance into Peripheral Vein, Percutaneous Approach (ICD-10-PCS; 2019-08-19)
PROC: 3E0333Z Introduction of Anti-inflammatory into Peripheral Vein, Percutaneous Approach (ICD-10-PCS; 2019-08-19)
DX: R42 Dizziness and giddiness (principal); R51 Headache; G40.909 Epilepsy, unspecified, not intractable, without status epilepticus; E05.90 Thyrotoxicosis, unspecified without thyrotoxic crisis or storm; F99 Mental disorder, not otherwise specified; Z88.8 Allergy status to other drugs, medicaments and biological substances
CPT/HCPCS: 36415; 80053; 80164; 83690; 85025; 93005; 93010; 99284-25; J0131